=== PATIENT | female | born 1960 | race Caucasian/White ===

== ENCOUNTER → 2020-06-10 | Outpatient (CLI) | payer OTHER ==
[~2020-06-10] MED LIST: ALLERGY MEDICAT25 MG PO; AMITRIPTYLINE H25 M3 PO; FLECAINIDE ACET50 M1 PO; KEFLEX500 M1 PO; LEXAPRO20 MG PO; MACRODANTIN100 MG PO; MACRODANTIN50 M1 PO; METOPROLOL SUCC25 M1 PO; NAPROSYN500 MG PO; NORCO 5-325 TA1 EACH PO; PROTONIX40 M2 PO; ZOCOR PO
[2020-06-10 08:17] LABS: ABSOLUTE NEUTROPHILS 4.1 thou/uL (1.4-8.2); BASOPHILS 0.8 % (0.0-2.0); EOSINOPHILS 1.8 % (0.0-3.0); HEMATOCRIT 38.7 % (37.0-47.0); HEMOGLOBIN 13.1 gm/dL (12.0-15.0); LYMPHOCYTES 28.4 % (24.0-44.0); MCH 33.2 pg (26.0-34.0); MCHC 33.9 g/dL (28.0-37.0); MCV 98.1 fL (80.0-100.0); MONOCYTES 12.5 % (1.0-8.0); PLATELET COUNT 279 thou/uL (150-400); POLYS 56.5 % (36.0-66.0); RBC 3.95 mil/uL (4.20-5.00); RDW 12.8 % (10.5-14.5); WBC 7.3 thou/uL (4.0-11.0)
[2020-06-10 08:34] LABS: ALBUMIN 3.7 g/dL (3.4-5.0); CALCIUM 8.9 mg/dL (8.5-10.1); POTASSIUM 4.1 mmol/L (3.5-5.1); TOTAL BILIRUBIN 0.2 mg/dL (0.2-1.0); TOTAL PROTEIN 6.8 g/dL (6.4-8.2)
== END ==
LOC: CAT 07:17
PROVIDERS: ATTEND Internal Medicine Cardiovascular Disease
DX: I25.10 Atherosclerotic heart disease of native coronary artery without angina pectoris (principal); I48.91 Unspecified atrial fibrillation; J43.9 Emphysema, unspecified; R91.8 Other nonspecific abnormal finding of lung field

== ENCOUNTER → 2020-06-10 | Outpatient (CLI) | payer OTHER | LOC: LAB 09:16 | PROVIDERS: ATTEND Internal Medicine Cardiovascular Disease | DX: Z01.812 Encounter for preprocedural laboratory examination (principal); Z20.822 Contact with and (suspected) exposure to COVID-19 ==

== ENCOUNTER 2020-06-15 06:24 | Observation (INO) | payer OTHER ==
[~2020-06-15] VITALS: Ht 175.3 cm; Wt 106.1 kg
[2020-06-15 07:27] VITALS: BP 127/70
[2020-06-15] MEDS ORDERED: AMITRIPTYLINE H50 M3 PO (07:35)
[2020-06-15] MEDS ORDERED: MELOXICAM15 MG PO (07:36)
[2020-06-15] MEDS ORDERED: OMEPRAZOLE 20 M20 M1 PO (07:37)
[2020-06-15] MEDS ORDERED: ALLERGY RELIEF180 MG PO (07:38)
[2020-06-15] MEDS ORDERED: BUSPIRONE HCL10 MG PO (07:39)
[2020-06-15 07:48] LABS: CALCIUM 8.3 mg/dL (8.5-10.1); CREATININE 0.9 mg/dL (0.6-1.0); POTASSIUM 3.7 mmol/L (3.5-5.1)
[2020-06-15 07:54] LABS: ALBUMIN 3.8 g/dL (3.4-5.0); APTT 28.3 Seconds (24.5-32.8); PROTIME 10.6 Seconds (9.3-11.4); TOTAL BILIRUBIN 0.2 mg/dL (0.2-1.0)
[2020-06-15 08:04] LABS: ABSOLUTE NEUTROPHILS 3.8 thou/uL (1.4-8.2); BASOPHILS 0.6 % (0.0-2.0); EOSINOPHILS 1.6 % (0.0-3.0); HEMATOCRIT 37.5 % (37.0-47.0); HEMOGLOBIN 12.5 gm/dL (12.0-15.0); LYMPHOCYTES 27.7 % (24.0-44.0); MCH 32.8 pg (26.0-34.0); MCHC 33.4 g/dL (28.0-37.0); MCV 98.1 fL (80.0-100.0); MONOCYTES 9.8 % (1.0-8.0); PLATELET COUNT 263 thou/uL (150-400); POLYS 60.3 % (36.0-66.0); RBC 3.82 mil/uL (4.20-5.00); RDW 12.7 % (10.5-14.5); WBC 6.3 thou/uL (4.0-11.0)
[2020-06-15 16:58] VITALS: BP 129/87
--- NOTE | 2020-06-15 18:28 | NUR ---
PT TO THE FLOOR FOR OBS REGARDING AFIB ABLATION AND PULM ISSUES POST OP. PT TO THE FLOOR ON 2L. PT IS RA RIGHT NOW WITH NO SIGNS OF DISTRESS AT THIS TIME TIME. DENIES PAIN OR DISCOMFORT. IV SALINE LOCKED. R GROIN SITE C.D.I PT ATE 100% OF DINNER. PTS ONLY CONCERN IS TO BE ABLE TO GET THIS RESP ISSUE ADDRESSED AND MOVING FORWARD WITH HEALTH. CALL LIGHT IN REACH AND REFRESHMENTS PROVIDED.
[2020-06-15 20:13] VITALS: BP 123/78
[2020-06-15 23:29] VITALS: BP 122/73
[2020-06-16 05:37] VITALS: BP 111/76
--- NOTE | 2020-06-16 07:15 | EKG ---
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
[2020-06-16 07:16] VITALS: BP 111/81
[2020-06-16] MEDS ORDERED: PRADAXA150 MG PO (07:37)
--- NOTE | 2020-06-16 08:23 | NUR ---
ASSUMED PT CARE AT 0700. PT RESTING. PTS ASSESSMENT PERFORMED AND CHARTED. PT DENIES PAIN. VSS. PTS PLAN IS TO GO HOME TODAY.
[2020-06-16 09:22] VITALS: BP 111/81
--- NOTE | 2020-06-16 16:26 | P ---
[facility] [place] [address] PROCEDURE REPORT Name: INGRID CRISTOBAL Room #: 209-P [facility] Natalya Ibanez#: [id number] Admission: 06/15/20 Attend Phys: Milan Thomas MD Discharge: 06/16/20 Date of : 58 Report #: [id number] THIS REPORT FOR: cc: Sj Morrison John E. DO Couchonnal, Luis F. MD ~ DATE OF SERVICE: 06/15/2020 PREOPERATIVE DIAGNOSIS: Atrial fibrillation. POSTOPERATIVE DIAGNOSIS: Atrial fibrillation. PROCEDURES PERFORMED: 1. Atrial fibrillation ablation, CPT code 29393. 2. 3D mapping, CPT code 57909. 3. Intracardiac echo, CPT code 11830. ANESTHESIA: The patient underwent general anesthesia with no anesthesia related complications. DESCRIPTION OF PROCEDURE: The patient underwent informed consent. We discussed the details of the procedure including the risks, which include but not limited to bleeding, infection, vascular damage, stroke, HI as well as cardiac perforation. She understood these risks and is willing to proceed. The patient was brought to EP laboratory in a fasting and sedated state, prepped and draped in a sterile fashion. I obtained access to the right femoral vein x 3, placing an 8, 9 and 7-Hebrew short sheath using the modified Seldinger technique. Next, under fluoroscopy, I placed a decapolar catheter easily in the coronary sinus for left atrial pacing and recording and an ICE catheter into the right atrium. Using intracardiac ultrasound, I created 3D geometry using QonfSound. There was evidence of two left and two right pulmonary veins. This was merged with the cardiac CT scan. At baseline, the patient was in sinus rhythm. Next, the patient was systemically heparinized and a transseptal was performed using a Sunray needle and SL1 sheath. This was straightforward and then I exchanged the SL1 sheath for the cryo sheath and placed the Lasso catheter in the left atrium. Next, a detailed 3D geometry and voltage map of the left atrium was created. Then, the cryoballoon was placed in the left atrium and pulmonary vein isolation was initiated. The left superior pulmonary vein underwent a 4-minute freeze and isolated at 35 seconds. The left inferior pulmonary vein underwent a 4-minute freeze and isolated at 90 seconds. The right superior pulmonary vein underwent a 3-minute freeze and this vein isolated at 32 seconds. The right inferior pulmonary vein underwent a 4-minute freeze and this vein isolated at 62 seconds. There was never any phrenic nerve compromise while performing the right-sided pulmonary vein isolation. Next, a [facility] [address] [place] [address] PROCEDURE REPORT Name: INGRID CRISTOBAL Danis Room #: 209-P [facility] M.R.#: [id number] Admission: 06/15/20 Attend Phys: Milan Thomas MD Discharge: 06/16/20 Date of : 58 Report #: [id number] basic EP study was performed. AV block was noted at 330 milliseconds. AV destiny ERP was noted at 270 milliseconds at a [address] cycle length. Aggressive atrial pacing was performed and I could not induce any SVT, atrial fibrillation or atrial flutter. As such, the procedure was concluded. Using intracardiac ultrasound, I verified there was no pericardial effusion. The patient received systemic protamine and once ACT was acceptable range, catheters and sheaths were pulled and hemostasis was obtained. The patient awoke neurologically and hemodynamically intact. No complications and no significant bleeding. CONCLUSIONS: 1. Successful atrial fibrillation ablation with isolation of the pulmonary veins. 2. Normal EP study with no inducible arrhythmias. <ELECTRONICALLY SIGNED> By: Milan Thomas MD 06/16/20 1626 1238 1420 Milan Thomas MD /nt
== END 2020-06-16 10:08 | disposition home or self-care (01) ==
LOC: CATH 06:24 → 2N 16:56
PROVIDERS: ADMIT Internal Medicine Cardiovascular Disease; ATTEND Internal Medicine Cardiovascular Disease
DX: I48.91 Unspecified atrial fibrillation (principal); E66.9 Obesity, unspecified; G47.33 Obstructive sleep apnea (adult) (pediatric); F41.9 Anxiety disorder, unspecified; Z79.899 Other long term (current) drug therapy; Z68.45 Body mass index [BMI] 70 or greater, adult
CPT/HCPCS: 62110; 62900; 65020; 65040; 70005

== ENCOUNTER 2021-03-10 06:19 | Outpatient (CLI) | payer OTHER ==
[~2021-03-10] VITALS: Ht 175.3 cm; Wt 118.4 kg
[~2021-03-10 06:19] MED LIST changes: +ALLERGY RELIEF180 MG PO; +AMITRIPTYLINE H50 M3 PO; +BUSPIRONE HCL10 MG PO; +COZAAR 50 MG TA50 M1 PO; +LASIX 20 MG TAB20 MG PO; +MELOXICAM15 MG PO; +OMEPRAZOLE 20 M20 M1 PO; +PRADAXA150 MG PO; +PREDNISONE 20 M20 M1 PO; +ZPAK PO
[2021-03-10 07:44] VITALS: BP 121/77
[2021-03-10 08:07] LABS: ABSOLUTE NEUTROPHILS 4.7 thou/uL (1.4-8.2); BASOPHILS 1.1 % (0.0-2.0); EOSINOPHILS 1.1 % (0.0-3.0); HEMATOCRIT 38.6 % (37.0-47.0); HEMOGLOBIN 12.8 gm/dL (12.0-15.0); LYMPHOCYTES 21.6 % (24.0-44.0); MCH 31.8 pg (26.0-34.0); MCHC 33.1 g/dL (28.0-37.0); MONOCYTES 10.2 % (1.0-8.0); PLATELET COUNT 279 thou/uL (150-400); RBC 4.03 mil/uL (4.20-5.00); RDW 13.9 % (10.5-14.5); WBC 7.1 thou/uL (4.0-11.0)
[2021-03-10 08:08] LABS: CALCIUM 8.8 mg/dL (8.5-10.1); CREATININE 0.9 mg/dL (0.6-1.0); POTASSIUM 4.1 mmol/L (3.5-5.1)
[2021-03-10 08:10] LABS: APTT 31.4 Seconds (24.5-32.8); INR 1.03; PROTIME 11.2 Seconds (10.5-12.1)
[2021-03-10 08:15] LABS: ALBUMIN 3.7 g/dL (3.4-5.0); TOTAL BILIRUBIN 0.4 mg/dL (0.2-1.0)
[2021-03-10 15:52] VITALS: BP 122/69
[2021-03-10] MEDS ORDERED: ELIQUIS5 MG PO (16:32)
--- NOTE | 2021-03-10 17:21 | NUR ---
PATIENT ASSESMENTS CHARTED. JET HAD ABLATION DONE, COMPLETED BEDREST. NO COMPLAINTS AT THIS TIME.
[2021-03-10 19:10] VITALS: BP 116/64
[2021-03-10 21:00] VITALS: BP 145/78
[2021-03-11 05:19] VITALS: BP 95/52
[2021-03-11 08:16] VITALS: BP 113/76
[2021-03-11 11:14] VITALS: BP 113/76
--- NOTE | 2021-03-11 11:43 | NUR ---
PATIENT REMAINS SINUS RHYTHM ON THE MONITOR. VOICES NO NEEDS OR CONCERNS. READY TO DISCHARGE. CARDIOLOGY ROUNDED AND WROTE ORDERS TO DC. DC INSTRUCTIONS REVIEWED WITH PATIENT. AWARE OF MEDICATIONS AND FOLLOW UP APPOINTMENT. IV DISCONTINUED. TELE MONITOR OFF. PATIENT LEFT FACILITY WITH SON PRESENT.
--- NOTE | 2021-03-13 08:37 | P ---
[facility] [place] [address] PROCEDURE REPORT Name: INGRID CRISTOBAL Room #: DEP SHERLYN Ibanez#: [id number] Admission: 03/10/21 Attend Phys: Milan Thomas MD Discharge: 03/11/21 Date of : 58 Report #: [id number] THIS REPORT FOR: cc: Justin Vital MD, John E. DO Couchonnal,Milan Salazar MD ~ DATE OF SERVICE: 03/10/2021 PREOPERATIVE DIAGNOSIS: Atrial fibrillation. POSTOPERATIVE DIAGNOSIS: Atrial fibrillation. PROCEDURES PERFORMED: 1. Atrial fibrillation ablation, CPT code 23826. 2. Program stimulation pacing after IV drug infusion, CPT code 49754. 3. The 3D mapping, CPT code 36554. 4. Intracardiac echo, CPT code 44121. 5. Focal ablation -- CPT code 38646. HISTORY: The patient is a 60-year-old female with history of atrial fibrillation ablation back in 05/2020 with clinical recurrence here for repeat ablation. ANESTHESIA: The patient underwent general anesthesia. DESCRIPTION OF PROCEDURE: The patient underwent informed consent. She was then brought to the EP laboratory in a fasting and sedated state, prepped and draped in a standard fashion. I obtained access to the right femoral vein x 3, placing sheath using the modified Seldinger technique. Under fluoroscopy, a decapolar catheter was placed in the coronary sinus with these. ICE catheter was placed in the right atrium. At baseline, the patient was in sinus rhythm. The patient was systemically heparinized and a transseptal was performed using a [place] needle and an Agilis sheath, which was straightforward. I then placed the PentaRay into the left atrium and created a 3D geometry of the left atrium. This voltage map demonstrated that there was reconnection of the left inferior pulmonary vein. Using a Decalog ThermoCool, ablation was performed and the left inferior pulmonary vein was re-isolated. All veins were tested and found to be within normal limits. Next, a basic EP study was performed. Aggressive atrial burst pacing was performed and AV block was noted at 330 milliseconds. Isoproterenol infusion was initiated at 2 mcg per minute. AV block was noted at 300 milliseconds. Atrial ERP was noted at 230 milliseconds at a [address] cycle length. Aggressive atrial burst pacing was performed and I did induce AFib that lasted about 30 seconds and terminated on its own. [facility] [address] [place] [address] PROCEDURE REPORT Name: INGRID CRISTOBAL Room #: DEP CL Marcelle#: [id number] Admission: 03/10/21 Attend Phys: Milan Thomas MD Discharge: 03/11/21 Date of : 58 Report #: [id number] Atrial flutter ablation. Ablation catheters were pulled to the right atrium and ablation was performed at 6 o'clock along the cavotricuspid isthmus. Preablation, the transisthmus conduction time was 65 milliseconds. Ablation was performed at 50 alegre and a continuous drag lesion was performed. Post-ablation, there was evidence of bidirectional block with a transisthmus conduction time of 155 milliseconds. Using intracardiac ultrasound, there is no evidence of pericardial effusion. The patient received systemic protamine and catheters and sheaths were pulled. Hemostasis was obtained. The patient awoke neurologically and hemodynamically intact. No complications. No significant bleeding. CONCLUSION: 1. Successful atrial fibrillation ablation with isolation of the left inferior pulmonary vein. 2. Successful atrial flutter ablation with evidence of bidirectional block. <ELECTRONICALLY SIGNED> By: Milan Thomas MD 03/13/21 0837 1030 2113 Milan Thomas MD /nt
== END 2021-03-11 11:52 | disposition home or self-care (01) ==
LOC: CATH 06:19 → 2N 13:55 → CATH 03-11 11:52
PROVIDERS: ATTEND Internal Medicine Cardiovascular Disease
DX: I48.0 Paroxysmal atrial fibrillation (principal); I10 Essential (primary) hypertension; J44.9 Chronic obstructive pulmonary disease, unspecified; G47.33 Obstructive sleep apnea (adult) (pediatric); E66.9 Obesity, unspecified; Z98.890 Other specified postprocedural states; Z79.899 Other long term (current) drug therapy; Z20.822 Contact with and (suspected) exposure to COVID-19; Z79.01 Long term (current) use of anticoagulants; Z90.49 Acquired absence of other specified parts of digestive tract; Z90.710 Acquired absence of both cervix and uterus; Z87.891 Personal history of nicotine dependence
CPT/HCPCS: 10081; 62110; 62900; 65040; 70005